=== PATIENT | female | born 1965 | race Caucasian/White ===

== ENCOUNTER 2022-01-14 15:16 | Emergency (ER) | payer SELFPAY | END 2022-01-14 16:11 | disposition home or self-care (01) | LOC: CSHERS 15:16 | DX: S09.90XA Unspecified injury of head, initial encounter (principal); X58.XXXA Exposure to other specified factors, initial encounter | CPT/HCPCS: 99283 ==

== ENCOUNTER 2023-02-18 16:00 | Inpatient (IN) | payer MEDICARE, SELFPAY ==
[2023-02-18] MEDS ORDERED: Ondansetron PF 4 MG/2 ML Vial ONE (16:06)
[2023-02-18 16:28] LABS: Mean Corpuscular HGB CONC 33.4 g/dL (32.0-36.0); Mean Corpuscular Hemoglobin 33.9 pg (27.0-33.0); Mean Corpuscular Volume 101.4 fl (81.6-98.3); Mean Platelet Volume 8.5 fl (7.4-10.4); Platelet Count 432 10x3/uL (150-450); RBC Distribution Width 15.7 % (11.5-14.5); Red Blood Cell (RBC) Count 4.43 10x6/uL (3.90-5.03); White Blood Cell (WBC) Count 12.8 10x3/uL (3.5-10.5)
[2023-02-18] MEDS ORDERED: Naloxone HCl 0.4 mg/ml Vial ONE (16:32)
[2023-02-18 16:36] LABS: Amphetamine Not Detected (NotDetected); Barbiturates Screen Not Detected (NotDetected); Benzodiazepine Screen Detected (NotDetected); Cocaine Metabolite Screen Not Detected (NotDetected); Methadone Not Detected (NotDetected); Methamphetamine Not Detected (NotDetected); Opiate Screen Not Detected (NotDetected); Oxycodone Screen Not Detected (NotDetected); Phencyclidine (PCP) Not Detected (NotDetected); THC/Cannabinoid Screen Detected (NotDetected); Tricyclic Screen Not Detected (NotDetected)
[2023-02-18 16:41] LABS: ALT (SGPT) 28 U/L (8-55); AST (SGOT) 29 U/L (5-34); Albumin 4.4 g/dL (3.5-5.0); Alkaline Phosphatase 67 U/L (40-110); Anion Gap 17 mmol/L (10-20); BUN (Urea Nitrogen) 13 mg/dL (9.8-20.1); Bilirubin, Total 0.6 mg/dL (0.2-1.2); Calc. Creatinine Clearance 0 mL/min (70-130); Calcium 9.3 mg/dL (7.8-10.44); Carbon Dioxide 19 mmol/L (22-29); Chloride 103 mmol/L (98-107); Estimated GFR 42; Glucose 80 mg/dL (70-105); Potassium 4.2 mmol/L (3.5-5.1); Protein, Total 7.4 g/dL (6.0-8.3); Sodium 135 mmol/L (136-145)
[2023-02-18 16:46] LABS: Acetaminophen Less than 10 mcg/mL (10.0-30.0); Alcohol 170.4 mg/dL (Less than 10); Salicylate Less than 8.0 mg/dL (15.0-30.0)
[2023-02-18 17:00] LABS: Magnesium 2.7 mg/dL (1.6-2.6)
[2023-02-18 17:05] LABS: PTT 28.6 sec (22.0-33.0); Prothrombin Time 10.6 sec (9.5-12.1)
[2023-02-18] MEDS ORDERED: Vancomycin HCl 750 MG in Sodium Chloride 0.9% 250 ML 250 ML IVPB SCH (17:30)
[2023-02-18] MEDS ORDERED: Cefepime 2 GM VIAL ONE (17:33)
[2023-02-18 17:40] LABS: Eosinophils 2 % (0-10); Monocytes 6 % (0-10); Reactive Lymphocytes 3 % (0-10)
[2023-02-18 17:41] LABS: Band 2 % (5-11); Lymphocytes 47 % (21-51)
[2023-02-18 17:43] LABS: Neutrophil 40 % (42-75)
[2023-02-18 17:44] LABS: MDiff Complete? YES; Platelet Adequacy Comment Appears Increased; RBC Morph Comment Within Normal Limits; Small Platelets MODERATE HPF (0-15)
[2023-02-18 17:54] LABS: ALV-art Gradient 308.275 mmHg (0-20); Actual Bicarbonate (HCO3a) 16.1 mEq/L (22-28); Base Excess (BEa) -10.4 mEq/L (-2.0 to +3.0); CO2 Tension 37.7 mmHg (35.0-45.0); Calcium, Ionized (arterial) 1.11 mmol/L (1.12-1.30); Carboxyhemoglobin (COHb) 3.4 gm% (0.0-3.0); Hematocrit-ABG 41 % (36.0-47.0); Hemoglobin (Hb) 13.9 g/dL (12.0-16.0); O2 Tension (PaO2), arterial 357.6 mmHg (80.0-100.0); Potassium - ABG Lab 3.27 mmol/L (3.70-5.30); Puncture Site RBA; pH, Arterial 7.248 (7.35-7.45)
[2023-02-18 17:58] LABS: Actual Bicarbonate (HCO3v) 17.2 mEq/L (22-28); Base Excess -8.6 mEq/L (-2 - +2); Calcium, Ionized (venous) 1.11 mmol/L (1.16-1.32); Chloride (VBG) 108 mmol/L (98-106); Hematocrit-VBG 38 % (36.0-47.0); Hemoglobin (Hb) 12.9 g/dL (11.7-16.0); Puncture Site Other Site; Sodium 139.8 mmol/L (133-146); pH (venous) 7.289 (7.32-7.43)
[2023-02-18] MEDS ORDERED: Propofol 1,000 MG/100 ML VIAL IV ONE (18:04)
[2023-02-18] MEDS ORDERED: Ondansetron PF 4 MG/2 ML Vial IVP PRN (18:10)
[2023-02-18] MEDS ORDERED: Ventilator Sedation Protocol 1 EACH FS ONE (18:10)
[2023-02-18] MEDS ORDERED: Propofol 1,000 MG/100 ML VIAL IV PRN ×2 (18:15→18:30)
[2023-02-18] MEDS ORDERED: Propofol BOLUS 1,000 MG/100 ML VIAL IV PRN (18:30)
[2023-02-18] MEDS ORDERED: FENTANYL 2,000MCG/100-0.9%NACL 100 ML IVPB SCH (18:30)
[2023-02-18] MEDS ORDERED: Morphine 2 MG/ML VIAL SLOW IVP PRN (18:30)
[2023-02-18] MEDS ORDERED: Lorazepam 2 MG/ML VIAL SLOW IVP PRN (18:30)
[2023-02-18] MEDS ORDERED: Fentanyl BOLUS 250 ML IVPB PRN (18:30)
[2023-02-18 18:44] VITALS: BMI 22.7
[2023-02-18] MEDS: Lactated Ringer's 1,000 ML IV SCH (18:45)
[2023-02-18 19:35] LABS: Lactic Acid 3.7 mmol/L (0.5-2.2)
[2023-02-18] MEDS ORDERED: Lactated Ringer's 1,000 ML IV SCH (22:15)
[2023-02-19] MEDS: Lactated Ringer's 1,000 ML IV SCH (01:31)
[2023-02-19 02:17] LABS: Bilirubin Neg (Negative); Blood, Urine 250 (Negative); Clarity Clear (Clear); Glucose, Urine (Dipstick) Normal (Negative); Ketone, Urine Negative (Negative); Leukocyte 25 (Negative); Nitrite Negative (Negative); Protein, Urine (Dipstick) 15 mg/dl (Neg-Trace); Urobilinogen Normal mg/dL (Less than 2)
[2023-02-19 02:27] LABS: Bacteria/HPF 1+ HPF (None Seen); CAUTI Indications for Culture Alt mental st,lethar; Squamous Epithelial 0-3 HPF (0-3)
[2023-02-19 02:28] LABS: Urine Culture Reflex No No
[2023-02-19 03:04] LABS: #Basophils 0.1 10x3/uL (0.0-0.2); #Eosinphils 0.4 10x3/uL (0.0-0.5); #Monocytes 1.4 10x3/uL (0.0-1.1); #Neutrophils 8.3 10x3/uL (1.5-8.4); %Basophils 0.7 % (0.0-2.0); %Eosinophils 2.5 % (0.0-6.0); %Monocytes 9.7 % (0.0-10.0); %Neutrophils 58.5 % (40.0-75.0); Mean Corpuscular Hemoglobin 33.9 pg (27.0-33.0); Mean Corpuscular Volume 102.6 fl (81.6-98.3); Mean Platelet Volume 8.3 fl (7.4-10.4); Platelet Count 345 10x3/uL (150-450); RBC Distribution Width 15.8 % (11.5-14.5); Red Blood Cell (RBC) Count 3.84 10x6/uL (3.90-5.03); White Blood Cell (WBC) Count 14.3 10x3/uL (3.5-10.5)
[2023-02-19 03:55] LABS: ALT (SGPT) 22 U/L (8-55); AST (SGOT) 22 U/L (5-34); Albumin 3.4 g/dL (3.5-5.0); Alkaline Phosphatase 52 U/L (40-110); Anion Gap 10 mmol/L (10-20); BUN (Urea Nitrogen) 10 mg/dL (9.8-20.1); Bilirubin, Total 0.3 mg/dL (0.2-1.2); Calc. Creatinine Clearance 69 mL/min (70-130); Calcium 7.4 mg/dL (7.8-10.44); Carbon Dioxide 22 mmol/L (22-29); Chloride 108 mmol/L (98-107); Estimated GFR 78; Globulin 2.5 g/dL (2.4-3.5); Glucose 74 mg/dL (70-105); Potassium 4.2 mmol/L (3.5-5.1); Protein, Total 5.9 g/dL (6.0-8.3); Sodium 136 mmol/L (136-145)
[2023-02-19 04:18] LABS: Actual Bicarbonate (HCO3a) 24.2 mEq/L (22-28); CO2 Tension 47.1 mmHg (35.0-45.0); Calcium, Ionized (arterial) 1.08 mmol/L (1.12-1.30); Carboxyhemoglobin (COHb) 0.3 gm% (0.0-3.0); Critical Notified By: CP.PH; Hematocrit-ABG 39 % (36.0-47.0); Hemoglobin (Hb) 13.1 g/dL (12.0-16.0); O2 Tension (PaO2), arterial 80.9 mmHg (80.0-100.0); Potassium - ABG Lab 4.05 mmol/L (3.70-5.30); Puncture Site RRA; RapidComm Collect By CP.PH; pH, Arterial 7.329 (7.35-7.45)
[2023-02-19 04:20] LABS: ALV-art Gradient 145.425 mmHg (0-20)
[2023-02-19] MEDS ORDERED: DC Sedation Protocol FS ONE (08:03)
[2023-02-19] MEDS ORDERED: Ipratropium/Albuterol 3 ML NEB NEB PRN (08:11)
[2023-02-19] MEDS: Pantoprazole 40 MG VIAL IVP SCH (08:27)
[2023-02-19] MEDS ORDERED: Electrolyte Replacement Protocol 1 EACH FS SCH (08:30)
[2023-02-19] MEDS ORDERED: Calcium Gluconate 100 MG/ML 10 ML IVPB SCH (09:15)
[2023-02-19 09:57] LABS: Lactic Acid 0.8 mmol/L (0.5-2.2)
[2023-02-19] MEDS ORDERED: Calcium Gluconate 4.6 MEQ in Sodium Chloride 0.9% 100 ML IVPB SCH (10:00)
[2023-02-19] MEDS ORDERED: Ondansetron ODT 4 MG TAB PO PRN (12:55)
[2023-02-19] MEDS ORDERED: Thiamine 100 MG TAB PO SCH (14:00)
[2023-02-19] MEDS ORDERED: Folic Acid 1 MG TAB PO SCH (14:00)
[2023-02-19] MEDS ORDERED: Multivit, Therapeutic 1 TAB PO SCH (14:00)
[2023-02-19] MEDS ORDERED: Mag-Al 1200 mg/1200 mg/30 ML UDCUP PO PRN (16:34)
[2023-02-19] MEDS ORDERED: Benzocaine 20% Spray 60 ML CAN PO PRN (16:36)
[2023-02-19] MEDS: Lorazepam 0.5 MG TAB PO PRN (20:04)
[2023-02-20] MEDS: Lorazepam 0.5 MG TAB PO PRN (03:46)
[2023-02-20 03:49] LABS: #Basophils 0.1 10x3/uL (0.0-0.2); #Eosinphils 0.2 10x3/uL (0.0-0.5); #Monocytes 0.9 10x3/uL (0.0-1.1); %Basophils 0.6 % (0.0-2.0); %Eosinophils 1.9 % (0.0-6.0); %Lymphocytes 33.2 % (18.0-47.0); %Monocytes 8.6 % (0.0-10.0); %Neutrophils 55.3 % (40.0-75.0); Hemoglobin 12.3 g/dL (12.0-15.5); Mean Corpuscular HGB CONC 33.2 g/dL (32.0-36.0); Mean Corpuscular Hemoglobin 34.1 pg (27.0-33.0); Mean Corpuscular Volume 102.8 fl (81.6-98.3); Mean Platelet Volume 8.9 fl (7.4-10.4); Platelet Count 309 10x3/uL (150-450); RBC Distribution Width 15.4 % (11.5-14.5); Red Blood Cell (RBC) Count 3.61 10x6/uL (3.90-5.03); White Blood Cell (WBC) Count 10.9 10x3/uL (3.5-10.5)
[2023-02-20 03:56] LABS: ALT (SGPT) 18 U/L (8-55); AST (SGOT) 18 U/L (5-34); Albumin 3.4 g/dL (3.5-5.0); Alkaline Phosphatase 52 U/L (40-110); Anion Gap 7 mmol/L (10-20); BUN (Urea Nitrogen) 8 mg/dL (9.8-20.1); Bilirubin, Total 0.5 mg/dL (0.2-1.2); Calc. Creatinine Clearance 75 mL/min (70-130); Calcium 8.4 mg/dL (7.8-10.44); Carbon Dioxide 30 mmol/L (22-29); Chloride 105 mmol/L (98-107); Estimated GFR 88; Globulin 2.4 g/dL (2.4-3.5); Glucose 88 mg/dL (70-105); Magnesium 2.1 mg/dL (1.6-2.6); Phosphorus 2.1 mg/dL (2.3-4.7); Potassium 3.5 mmol/L (3.5-5.1); Protein, Total 5.8 g/dL (6.0-8.3); Sodium 138 mmol/L (136-145)
[2023-02-20] MEDS ORDERED: Potassium Chloride 20 MEQ TAB PO SCH (08:00)
[2023-02-20 08:10] VITALS: BP 127/79; TEMP 98.3
[2023-02-20] MEDS: Pantoprazole 40 MG VIAL IVP SCH (08:23)
[2023-02-20] MEDS ORDERED: Thiamine 100 MG TAB PO SCH (09:00)
[2023-02-20] MEDS ORDERED: Folic Acid 1 MG TAB PO SCH (09:00)
[2023-02-20] MEDS ORDERED: Multivit, Therapeutic 1 TAB PO SCH (09:00)
== END 2023-02-20 09:53 | disposition home or self-care (01) | DRG 208 ==
LOC: CSHERS 16:00 → CSHICU 17:24
PROVIDERS: ADMIT Family Medicine; ATTEND Internal Medicine
PROC: 0BH17EZ Insertion of Endotracheal Airway into Trachea, Via Natural or Artificial Opening (ICD-10-PCS; principal; 2023-02-18)
PROC: 5A1935Z Respiratory Ventilation, Less than 24 Consecutive Hours (ICD-10-PCS; 2023-02-18)
PROC: 4A133R1 Monitoring of Arterial Saturation, Peripheral, Percutaneous Approach (ICD-10-PCS; 2023-02-18)
DX: J96.01 Acute respiratory failure with hypoxia (principal); G93.41 Metabolic encephalopathy; N17.9 Acute kidney failure, unspecified; J90 Pleural effusion, not elsewhere classified; F10.129 Alcohol abuse with intoxication, unspecified; F19.180 Other psychoactive substance abuse with psychoactive substance-induced anxiety disorder; I95.9 Hypotension, unspecified; G62.9 Polyneuropathy, unspecified; J45.909 Unspecified asthma, uncomplicated; F41.9 Anxiety disorder, unspecified; E83.51 Hypocalcemia; D72.829 Elevated white blood cell count, unspecified; F17.210 Nicotine dependence, cigarettes, uncomplicated; Z88.0 Allergy status to penicillin; R45.1 Restlessness and agitation
CPT/HCPCS: 31500; 36415; 36600; 51702; 70450; 71045; 80053; 80306; 80307; 81001; 82550; 82805; 83605; 83735; 84100; 84443; 84484; 85025; 85379; 85610; 85730; 87040; 87086; 93005; 94002; 94003; 94760; 94762; 96365; 96374; 96375; 99292; C9113; J0612; J0692; J1650; J2310; J2405; J2704; J3370; J3490; J7050; J7120

== ENCOUNTER 2023-02-23 13:06 | Emergency (ER) | payer MEDICARE | END 2023-02-23 14:35 | disposition home or self-care (01) | LOC: CSHERS 13:06 | DX: R20.2 Paresthesia of skin (principal); F17.210 Nicotine dependence, cigarettes, uncomplicated | CPT/HCPCS: 99283 ==